=== PATIENT | male | born 1975 | race American Indian/Alaskan Native ===

== ENCOUNTER 2016-09-06 18:26 | Emergency (ER) | payer SELFPAY ==
[~2016-09-06] VITALS: Ht 172.7 cm; Wt 108.6 kg
[2016-09-06 18:51] VITALS: Ht 172.7 cm; Wt 108.6 kg
== END 2016-09-06 21:56 | disposition left against medical advice (07) ==
LOC: E/R 18:26 → FTE 21:56
DX: Z53.21 Procedure and treatment not carried out due to patient leaving prior to being seen by health care provider (principal)